=== PATIENT | male | born 1965 | race Caucasian/White ===

== ENCOUNTER 2021-03-01 08:00 | Outpatient (CLI) | payer OTHER ==
--- NOTE | 2021-03-01 16:49 | XRAY Report ---
PROCEDURE: Hand 3 View RT, x-ray INDICATIONS: CRUSHING INJURY OF RIGHT HAND TECHNIQUE: 3 views of the hand(s) acquired. COMPARISON: None FINDINGS: Bones: No fractures or dislocations. No suspicious bony lesions. Soft tissues: No suspicious soft tissue calcifications. IMPRESSION: Unremarkable right hand radiographs. No fracture or foreign body. Reviewed by: Carlin Garrett MD on 03/01/2021 3:47 PM [place] Approved by: Carlin Garrett MD on 03/01/2021 3:47 PM [place] Station ID: [id number]
== END 2021-03-01 23:59 | disposition home or self-care (01) ==
LOC: DI.S 08:00
PROVIDERS: ATTEND Physician Assistant
DX: S67.21XA Crushing injury of right hand, initial encounter (principal)

== ENCOUNTER 2023-10-25 15:25 | Emergency (ER) | payer OTHER ==
[2023-10-25 15:49] VITALS: BP 147/101; O2SAT 100
--- NOTE | 2023-10-25 16:53 | ED Physician Documentation ---
PD HPI BACK PAIN - Stated complaint Stated Complaint: BACK PX - Chief complaint Chief Complaint: Back Pain - History obtained from History obtained from: Patient - History of Present Illness Pain level max: 8 Pain level now: 6 Location: Lower, Left Quality: Pain, Similar to prior episodes Associated symptoms: No: Fever, Weakness, Numbness, Incontinent of urine, Unable to urinate, Hematuria, Incontinent of stool Contributing factors: No: Trauma, Anticoagulated, Cancer, IVDA Recently seen: Not recently seen - Additional information Additional information: 58-year-old male with left lower back pain for the past several weeks. Radiates down the left leg. No weakness or numbness. No loss of bowel or bladder control. Taken Motrin without relief. Review of Systems Constitutional: denies: Fever, Chills Nose: denies: Rhinorrhea / runny nose, Congestion GI: denies: Vomiting, Diarrhea Skin: denies: Rash Musculoskeletal: denies: Neck pain, Back pain Neurologic: denies: Headache PD PAST MEDICAL HISTORY - Past Medical History Past Medical History: No - Past Surgical History Past Surgical History: Yes Ortho: Other - Present Medications Home Medications: Ambulatory Orders Medication Instructions Recorded Confirmed methylPREDNISolone [Medrol] 4 mg PO DAILY #1 tab 10/25/23 oxyCODONE [Roxicodone] 5 - 10 mg PO Q6H PRN #20 tablet 10/25/23 MDD 6 - Allergies Allergies/Adverse Reactions: Allergies Allergy/AdvReac Type Severity Reaction Status Date / Time Penicillins Allergy Rash Verified 10/25/23 16:25 - Social History Does the pt smoke?: No Smoking Status: Never smoker Does the pt drink ETOH?: No Does the pt have substance abuse?: No - Immunizations Immunizations are current?: Yes PD ED PE NORMAL - Vitals Vital signs reviewed: Yes - General General: Alert and oriented X 3, No acute distress - HEENT HEENT: Moist mucous membranes - Neck Neck: Supple, no meningeal sign - Cardiac Cardiac: RRR, Strong equal pulses - Respiratory Respiratory: No respiratory distress, Clear bilaterally - Abdomen Abdomen: Soft, Non tender, Non distended - Back Back: No spinal TTP, Other (No midline tenderness to palpation or percussion. No step-off or deformity. Tender palpation over the left SI joint. Reproduces his pain) - Derm Derm: Warm and dry - Extremities Extremities: No edema, No calf tenderness / cord - Neuro Neuro: Alert and oriented X 3, No motor deficit, No sensory deficit, Other (Norm al bilateral lower extremity patellar and ankle jerk reflexes. Normal great toe extension bilaterally. no saddle anesthesia) - Psych Psych: Normal mood, Normal affect Results - Vitals Vitals: Vital Signs - 24 hr 10/25/23 15:43 Temperature 36.3 C L Heart Rate 76 Respiratory 16 Rate Blood Pressure 147/101 H O2 Saturation 100 Oxygen O2 Source Room air PD Medical Decision Making - ED course Complexity details: considered differential (No cauda equina, no spinal epidural abscess, no fracture, no aortic dissection or evidence of aneursym rupture), d/w patient ED course: 58-year-old male presents the emergency department with left-sided sciatica. No numbness or tingling. No loss of bowel or bladder control. No red flags. Will place on pain medication and steroids for home. Ambulating without difficulty. No significant limp. No indication for emergent imaging. Patient counseled regarding signs and symptoms for which I believe and urgent re- evaluation would be necessary. Patient with good understanding of and agreement to plan and is comfortable going home at this time This document was made in part using voice recognition software. While efforts are made to proofread this document, sound alike and grammatical errors may occur. Departure - Departure Disposition: 01 Home, Self Care Clinical Impression: Sciatica Qualifiers: Laterality: left Qualified Code(s): M54.32 - Sciatica, left side Condition: Good Instructions: ED Sciatica Follow-Up: your,doctor in 1 week [Other] Prescriptions: methylPREDNISolone [Medrol] 4 mg PO DAILY #1 tab oxyCODONE [Roxicodone] 5 - 10 mg PO Q6H PRN #20 tablet MDD 6 PRN Reason: pain Comments: Your prescription was sent to [email or web address] in [place]. Please follow-up with your doctor for further care. Please return if you worsen. This should improve over the next week or 2. Your doctor may want to refer you to physical therapy for your sciatica. I am prescribing a short course of narcotic pain medication for you. These are potentially dangerous and addictive medications that should be used carefully. These medications may constipate you. Take an lvta-wdh-xmpghnr stool softener (docusate) twice daily with plenty of water while taking these medications. If you go 24 hours without a bowel movement, take [id number]-vwx-[id number] miralax, per package instructions. Do not drink or drive while taking these medications. If you received narcotic or sedating medications while in the emergency department, do not drive for 24 hours. Store this medication in a safe, secure place and out of reach of children. It is a violation of federal law to give or sell this medication to another person or to use in a manner other than prescribed. The ED will not refill narcotic prescriptions, including prescriptions lost or stolen. To dispose of unwanted medications: 1. [facility] [address] in [place] has a medication drop box. They accept prescription medications (in pill form) Tuesday through Tuesday 9:00 a.m. to 5:00 p.m. 2. [facility] [employer] [facility] accepts prescription medications (in pill form only) for disposal year round. Call for more information. 3. Contact the [facility] for the next [facility] sponsored prescription drug collection event. , [phone], or [phone]; Discharge Date/Time: 10/25/23 16:50
== END 2023-10-25 16:50 | disposition home or self-care (01) ==
LOC: ED 15:25
DX: M54.32 Sciatica, left side (principal)
CPT/HCPCS: 99282; 99283

== ENCOUNTER 2023-12-17 09:07 | Outpatient (CLI) | payer OTHER ==
--- NOTE | 2023-12-19 11:18 | XRAY Report ---
PROCEDURE: Lumbar Spine 2-3V INDICATIONS: LUMBAR RADICULOPATHY BACK PX TECHNIQUE: 3 views of the lumbar spine were acquired. COMPARISON: None. FINDINGS: Surgical change: None. Bones: 5 mnc-inq-byeezjh vertebrae are present. There is normal bony alignment. No vertebral body co mpression fractures. No suspicious bony lesions. Mild to moderate multilevel degenerative changes. I nferior lumbar facet arthropathy. Soft tissues: Overlying bowel gas pattern is normal. No suspicious soft tissue calcifications. IMPRESSION: No acute fracture traumatic subluxation. Multilevel moderate multilevel degenerative changes. Inferio r lumbar facet arthropathy. Reviewed by: Sabra Chaney MD, PhD on 12/19/2023 11:16 AM PDT Approved by: Sabra Chaney MD, PhD on 12/19/2023 11:16 AM PDT Station ID: [id number]
== END 2023-12-17 09:08 | disposition home or self-care (01) ==
LOC: DI 09:07
PROVIDERS: ATTEND Registered Nurse
DX: M47.816 Spondylosis without myelopathy or radiculopathy, lumbar region (principal)

== ENCOUNTER 2023-12-30 13:19 | Outpatient (CLI) | payer OTHER ==
--- NOTE | 2023-12-30 15:41 | MRI Report ---
PROCEDURE: Lumbar Spine WO INDICATIONS: LUMBAR RADICULOPATHY TECHNIQUE: Noncontrast sagittal T1 spin echo and T2 fast echo, sagittal STIR, axial T1 and T2 fast spin echo thr ough the lumbar spine. In cases with scoliosis, additional coronal T2 fast spin echo may be performe d. COMPARISON: Lumbar spine x-rays 12/17/2023 FINDINGS: Image quality: Excellent. Alignment and Curvature: There is normal bony alignment. Bone Marrow: For nomenclature, 5 nonrib-bearing lumbar vertebrae are identified and and annotated on the exam. Modic type I endplate changes at the L5-S1 level (4/11). Otherwise, marrow is of normal ov erall signal. No acute vertebral body compression fractures. Spinal Cord: Conus medullaris terminates at the L1 level. Visualized cord demonstrates normal signa l and size. Paraspinous Soft Tissues: Subcentimeter T2 hyperintense lesions are present in the right hepatic lobe (5/4), which are too small to characterize but are statistically likely to represent simple cysts. T12-L1: No significant central canal or foraminal stenosis L1-L2: Mild diffuse disc bulge, effacing the ventral thecal sac without significant central canal samuel nosis. No significant foraminal stenosis. L2-L3: Mild diffuse disc bulge resulting in mild central canal stenosis. No significant foraminal stenosis. L3-L4: Mild diffuse disc bulge with bilateral foraminal zone protrusions, resulting in mild central c anal stenosis and mild right foraminal stenosis. No significant left foraminal stenosis. L4-L5: Mild diffuse disc bulge resulting in mild central canal stenosis and mild left foraminal samuel nosis. No significant right foraminal stenosis. Small annular fissure at the posterior L4-L5 disc (2/ 12). L5-S1: Diffuse disc bulge with left subarticular and foraminal protrusion, resulting in mild central canal stenosis, severe left foraminal stenosis, and contact with the descending left S1 nerve root (2 /11). No significant right foraminal stenosis. IMPRESSION: 1.Disc bulge with left subarticular foraminal protrusion, and subsequent contact on the descending le ft S1 nerve root. Please correlate with symptomatology in the corresponding dermatomal distribution. 2.No severe central canal stenosis. 3.No vertebral body compression fractures. Reviewed by: Anthony Talamantes MD on 12/30/2023 3:39 PM PDT Approved by: Anthony Talamantes MD on 12/30/2023 3:39 PM PDT Station ID: [id number]
== END 2023-12-30 13:20 | disposition home or self-care (01) ==
LOC: DI 13:19
PROVIDERS: ATTEND Nurse Practitioner Gerontology
DX: M51.17 Intervertebral disc disorders with radiculopathy, lumbosacral region (principal); M48.07 Spinal stenosis, lumbosacral region; M51.36 Other intervertebral disc degeneration, lumbar region; M48.061 Spinal stenosis, lumbar region without neurogenic claudication